=== PATIENT | male | born 1945 | race Caucasian/White ===

== ENCOUNTER → 2018-04-16 | Outpatient (CLI) | payer MEDICARE ==
[~2018-04-16] MED LIST: AMLO5TAB7 PO; CELE200C PO; CYCL10TA2 PO; DEXL60CA2 PO; OXYC1TAB15 PO; PRAV40TA2 PO; VALS1TAB33 PO
--- NOTE | 2018-04-16 10:08 | RAD ---
EXAM: AP View of the chest DATE: 04/16/2018 9:49 AM INDICATION: WHEEZING, leukocytosis COMPARISON: No Prior FINDINGS/ IMPRESSION: The heart is not enlarged. Aortic calcifications are seen. Mediastinal and hilar contours are normal. Emphysematous changes are seen. No focal parenchymal airspace opacity. No pleural effusion or pneumothorax. Electronically signed by: Raad Cueto MD (04/16/2018 10:04 AM) [facility]
== END | disposition home or self-care (01) ==
LOC: RAD 09:33
PROVIDERS: ATTEND Physician Assistant
DX: D72.828 Other elevated white blood cell count (principal); R06.2 Wheezing
CPT/HCPCS: 71046